=== PATIENT | female | born 1955 | race Caucasian/White ===

== ENCOUNTER → 2023-09-30 | Outpatient (CLI) | payer MEDICARE, BC ==
[2023-09-30 15:13] VITALS: BP 135/81; PULSE 70; RESP 16; TEMP 98
--- NOTE | 2023-09-30 16:44 | P.HPOB ---
History of Present Illness H&P Date: 09/30/23 Chief Complaint: The patient is here for her routine gynecologic exam and ma mmogram. This is a 68-year-old G6, P6 with an LMP of 2007. Patient is here to establish with this office. Previously saw Dr. Layton for her gynecologic care. Her last pelvic exam was about 2 years ago. Is without gynecologic complaints and denies any postmenopausal bleeding. About 2 and half years ago she had an abnormal Pap smear and Dr. Layton did a colposcopy and nothing further was needed. She states she has the records from Dr. Layton's office at home and will bring them in for us. Review of Systems The patient's weight has been stable over the last year. She denies respiratory, cardiac, or G.I. problems. 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 History of Any Multi-Drug Resistant Organisms: None Reported Past Surgical History: Orthopedic Surgery, Tonsillectomy Additional Past Surgical History / Comment(s): Left knee meniscus and arthros copic surgery. Colonoscopy with upper endoscopy 2022(next after 5yr). Past Anesthesia/Blood Transfusion Reactions: No Reported Reaction Past Psychological History: No Psychological Hx Reported Smoking Status: Former smoker Past Alcohol Use History: Occasional (1 drink per month.) Additional Past Alcohol Use History / Comment(s): Smoked cigarettes only in college. Past Drug Use History: None Reported Additional History: She has been a since 2021 and is longer sexually active at this time. - Past Family History Granddaughter Family Medical History: Cancer Additional Family Medical History / Comment(s): Neuroblastoma at age 17 months Medications and Allergies Home Medications Medication Instructions Recorded Confirmed Type Calcium Carbonate/Vitamin D3 1 tab PO DAILY 09/30/23 09/30/23 History [Calcium 600 mg-D3 10 Mcg (400 Iu)] Famotidine [Pepcid] 10 mg PO DAILY 09/30/23 09/30/23 History allopurinoL 50 mg PO DIRECTED 09/30/23 09/30/23 History Allergies Allergy/AdvReac Type Severity Reaction Status Date / Time No Known Allergies Allergy Unverified 09/30/23 14:40 Exam Vital Signs Temp Pulse Resp BP Pulse Ox 09/30/23 14:41 98 F 70 16 135/81 99 Intake and Output 09/30/23 09/30/23 09/30/23 06:59 14:59 22:59 Other: Weight 79.832 kg Height 5 feet 6 inches, weight 176 pounds, BMI 28.4. This is a well-developed well-nourished white female who is alert and oriented times 3 in no acute distress. HEENT: Within normal limits. NECK: Supple without mass or thyromegaly. CHEST AND LUNGS: Clear to auscultation. HEART: Regular rate and rhythm. BREASTS: Are without mass or discharge. AXILLARY EXAM: Negative for adenopathy. BACK: Negative for CVA tenderness. ABDOMEN: Soft, nontender, without palpable masses. PELVIC EXAM: Normal external genitalia with mild atrophy. Cervix and vagina appear normal with mild atrophy. There is no unusual discharge. There is no evidence of prolapse. The uterus is midposition, nongravid size and nontender. There are no palpable adnexal masses or tenderness. RECTAL EXAM: Rectovaginal exam is negative for mass or tenderness and is negative for occult blood. EXTREMITIES: Nontender. IMPRESSION: 1. 68-year-old menopausal female with normal gynecologic exam. 2. History of osteopenia. 3. Incomplete database. Abnormal Pap smear approximately 2020 and the patient states she had a unremarkable colposcopic examination. PLAN: 1. Pap smear cotest was performed. The patient states she will bring her records from Dr. Layton's office since they were sent to her home. I will then review those records as well as her current Pap smear and determine if we can discontinue Pap smears. 2. Self breast awareness was discussed with the patient. We have also discussed symptoms associated with inflammatory breast cancer. 3. Screening mammogram was done today. 4. Osteoporosis prevention was discussed. I have stressed the importance of adequate calcium, vitamin D and regular exercise. Recommended amounts of calcium and vitamin D were also discussed. Bone density test will also be done today. 5. She was advised to return in one year for her annual well woman exam.
== END ==
LOC: WWCWWP 14:27
PROVIDERS: ATTEND Obstetrics & Gynecology
DX: Z12.31 Encounter for screening mammogram for malignant neoplasm of breast (principal); R89.6 Abnormal cytological findings in specimens from other organs, systems and tissues; Z78.0 Asymptomatic menopausal state; Z87.39 Personal history of other diseases of the musculoskeletal system and connective tissue; Z87.891 Personal history of nicotine dependence
CPT/HCPCS: 77063; 77067; 77080

== ENCOUNTER → 2024-12-14 | Outpatient (CLI) | payer MEDICARE, BC ==
[2024-12-14 11:04] VITALS: BP 126/73; PULSE 89; RESP 16; TEMP 98.9
--- NOTE | 2024-12-14 11:47 | P.HPOB ---
History of Present Illness H&P Date: 12/14/24 Chief Complaint: The patient is here for her routine gynecologic exam and ma mmogram. This is a 69-year-old G6, P6 with an LMP of 2007. The patient recently noticed a bulge protruding from the vagina 2 days ago. She states it was about a wall not a size of a bulge. She states it was not painful. It did seem to go back in. She thinks she may have been having some environmental allergy symptoms with some coughing or sneezing. In July she had an ultrasound of the pelvis because of some abdominal and pelvic pains. The ultrasound done on 07/26/2024 was unremarkable with no adnexal masses. Review of Systems The patient has lost 3 pounds over the last year. She denies respiratory, cardiac, or G.I. problems. : A recent small bulge as in the HPI. She states she also noticed her urinary stream is less strong when she notices the bulge. 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 Osteopenia and was started on Fosamax in 2023(PCP). 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 History of Any Multi-Drug Resistant Organisms: None Reported Past Surgical History: Orthopedic Surgery, Tonsillectomy Additional Past Surgical History / Comment(s): Left knee meniscus and arthro scopic surgery. Colonoscopy with upper endoscopy 2022(next after 5yr). Past Anesthesia/Blood Transfusion Reactions: No Reported Reaction Past Psychological History: No Psychological Hx Reported Smoking Status: Former smoker Past Alcohol Use History: Occasional (2 drinks per month.) Additional Past Alcohol Use History / Comment(s): Smoked cigarettes only in college. Past Drug Use History: None Reported Additional History: She is a since 2021 and is not sexually active. - Past Family History Granddaughter Family Medical History: Cancer Additional Family Medical History / Comment(s): Neuroblastoma at age 17 months Medications and Allergies Home Medications Medication Instructions Recorded Confirmed Type Calcium Carbonate/Vitamin D3 1 tab PO DAILY 09/30/23 09/30/23 History [Calcium 600 mg-D3 10 Mcg (400 Iu)] Famotidine [Pepcid] 10 mg PO DAILY 09/30/23 09/30/23 History allopurinoL 50 mg PO DIRECTED 09/30/23 09/30/23 History Alendronate Sodium [Fosamax] 70 mg PO WEEKLY 12/14/24 12/14/24 History Allergies Allergy/AdvReac Type Severity Reaction Status Date / Time No Known Allergies Allergy Unverified 12/14/24 10:55 Exam Vital Signs Temp Pulse Resp BP Pulse Ox 12/14/24 10:59 98.9 F 89 16 126/73 97 Intake and Output 12/13/24 12/14/24 12/14/24 22:59 06:59 14:59 Other: Weight 78.471 kg Height 5 feet 6 inches, weight 173 pounds, BMI 27.9. This is a well-developed well-nourished white female who is alert and oriented times 3 in no acute distress. HEENT: Within normal limits. NECK: Supple without mass or thyromegaly. CHEST AND LUNGS: Clear to auscultation. HEART: Regular rate and rhythm. BREASTS: Are without mass or discharge. AXILLARY EXAM: Negative for adenopathy. BACK: Negative for CVA tenderness. ABDOMEN: Soft, nontender, without palpable masses. PELVIC EXAM: Normal external genitalia moderate atrophy. Cervix and vagina appear normal with mild to moderate atrophy. There is no unusual discharge. At rest there is a grade 2 uterine prolapse. There is minimal signs of a cystocele at rest. With Valsalva a grade 2-3 cystocele is noted. A grade 1-2 rectocele is noted. The uterus is midposition, nongravid size and nontender. There are no palpable adnexal masses or tenderness. RECTAL EXAM: Rectovaginal exam is negative for mass or tenderness and is negative for occult blood does confirm a small rectocele.. EXTREMITIES: Nontender. IMPRESSION: 1. 69-year-old menopausal female with a mildly symptomatic grade 3-4 cystocele (subjective, with grade 2-3 cystocele demonstrated), grade 2 uterine prolapse, and grade 1-2 rectocele. 2. History of osteopenia 3. History of ASCUS Pap smear with negative high-risk HPV testing on 09/30/2023. PLAN: 1. She did have a negative colposcopy for ASC-H in [address] Layton. Pap smear cotest was performed today. 2. Self breast awareness was discussed with the patient. We have also discussed symptoms associated with inflammatory breast cancer. 3. Screening mammogram will be done today. 4. Osteoporosis prevention was discussed. I have stressed the importance of adequate calcium, vitamin D and regular exercise. Recommended amounts of calcium and vitamin D were also discussed. He was started on Fosamax 70 mg weekly by her PCP. 5. We have had a long discussion regarding pelvic prolapse. We have discussed various options including conservative management, pessary use, and surgical correction. We have also discussed the negative Valsalva exercises and instructions were given on how to do this. She would like to proceed with seeing somebody regarding possible surgical correction. She will be referred to Dr. Freeman for this. ACOG FAQ handout on pelvic relaxation was given to the patient. 6. She was advised to return in one year for her annual well woman exam and as needed.
--- NOTE | 2024-12-14 13:48 | MM ---
Reason for Exam: Screening (asymptomatic). Last mammogram was performed 1 year(s) and 2 month(s) ago. Patient History: Menarche at age 11. First Full-Term at age 24. Postmenopausal. Patient has history of breast feeding. Risk Values: Luli 5 year model risk: 1.9%. NCI Lifetime model risk: 5.4%. Prior Study Comparison: 08/15/2020 Bilateral Screening Mammogram, [facility]. 09/30/2023 Bilateral MG 3D screening mammo w/cad, [facility]. Tissue Density: There are scattered areas of fibroglandular density. Findings: Analyzed By CAD. Right breast: There is no suspicious group of microcalcifications or new suspicious mass. Left breast: There is no suspicious group of microcalcifications or new suspicious mass. Overall Assessment: Negative, BI-RAD 1 Management: Screening Mammogram of both breasts in [address] [facility] will attempt to contact patient to return for supplemental views and ultrasound if indicated. Patient should continue monthly self-breast exams. A clinical breast exam by your physician is recommended on an annual basis. This exam should not preclude additional follow-up of suspicious palpable abnormalities. Note on Luli scores and lifetime risk: 1. A Luli score greater than 3% is considered moderate risk. If this is the case, consider specialist referral to assess eligibility for a risk reducing agent. 2. If overall lifetime risk for the development of breast cancer is 20% or higher, the patient may qualify for future screening with alternating mammogram and breast MRI. [facility], , 12/14/2024 1:45 PM. Electronically signed and approved by: Alonso Hanson DO
== END ==
LOC: WWCWWP 10:32
PROVIDERS: ATTEND Obstetrics & Gynecology
DX: Z01.419 Encounter for gynecological examination (general) (routine) without abnormal findings (principal); Z12.31 Encounter for screening mammogram for malignant neoplasm of breast; M85.80 Other specified disorders of bone density and structure, unspecified site; Z78.0 Asymptomatic menopausal state; Z87.891 Personal history of nicotine dependence; Z87.42 Personal history of other diseases of the female genital tract
CPT/HCPCS: 77063; 77067